=== PATIENT | female | born 1970 | race Caucasian/White ===

== ENCOUNTER 2023-11-06 12:51 | Emergency (ER) | payer SELFPAY ==
[2023-11-06 12:56] VITALS: BP 146/80
--- NOTE | 2023-11-06 13:36 | ED.GENMED ---
History of Present Illness
General
Chief Complaint: Musculo-Skeletal Complaint
Source: patient
Time Seen by Provider: 11/06/23 13:27
Travel History
Have you had any contact with someone who has COVID-19?: No
Do you have any symptoms of coronavirus? Fever > 100 degrees, chills, cough, shortness of breath, sore throat, loss of taste or smell, muscle aches, or headache?: No
History of Present Illness
History of Present Illness:
53-year-old female presenting to the emergency department for evaluation of atraumatic right anterior lower leg pain that started this past Sunday, noticed faint areas of swelling to the anterior portion that had a little bit of erythema, initially
improved with Motrin and ibuprofen but states today woke up and symptoms did not seem to be improved, the swelling a little bit worse and patient had difficulty both plantar flexing and dorsiflexing her foot/ankle. She denies any fevers, chills,
rigors, minimal calf pain or tenderness, chest pain or shortness of breath. Pain was felt this morning more into the thigh and hip area which was different than the previous days. Denies any history of similar. No tick bites or rashes otherwise.
Past History
Past History
ED Past Medical History: None
ED Past Surgical History: Gynecological
Social History
Tobacco: Non-smoker
Alcohol: None
Drug: None
Personal:
Living: with family
Review of Systems
Review of Systems
All Other Systems: ROS reviewed and negative except as documented in HPI and ROS
Phy Exam
Physical Exam
Physical Exam:
GENERAL: Alert , in no apparent distress
EYE: conjunctiva clear
Head: Normocephalic atraumatic
NECK: Supple,
ENT: mmm.
LUNGS: no acute respiratory distress
NEUROLOGICAL: Alert and oriented
SKIN: Warm and dry, very faint erythema along the anterior portion of the right mid tibia. No overlying warmth
MUSCULOSKELETAL: well perfused. Easily palpable pedal and tibial pulses. Cap refill less than 2 seconds and sensation grossly intact to light touch. No calf tenderness or edema. There does appear to be some varicose veins to the anterior
portion of the right mid tibia.
PSYCH: Normal and appropriate interaction.
Scores
Heart Failure Risk
Heart Failure Risk Score: Not Applicable
Heart Score for Chest Pain Patients
STEMI patient?: Not applicable
Withdrawal Assessment of Alcohol
Withdrawal Assessment Completed?: Not applicable
Course
Orders/Labs/Results
Orders:
Orders
11/06/23 13:24
US Periph Venous LOWER Ext RT Urgent
Comment:
Reason For Exam: pain/redness
Vital Signs
Initial and Last Documented VS:
Initial Vital Signs
Temp Pulse Resp BP Pulse Ox
98.3 F 95 20 146/80 98
11/06/23 12:56 11/06/23 12:56 11/06/23 12:56 11/06/23 12:56 11/06/23 12:56
Last Documented Vital Signs
Temp Pulse Resp BP Pulse Ox
98.3 F 95 20 146/80 98
11/06/23 12:56 11/06/23 12:56 11/06/23 12:56 11/06/23 12:56 11/06/23 12:56
MDM/Problems Addressed
Differential Diagnosis Includes:
DVT, varicose veins, no concern for acute arterial occlusion, tendinitis
MDM/Problems Addressed:
53-year-old female presenting to the emergency department for evaluation of right anterior lower leg pain over the last few days, today worse and now also feeling this pain in the right thigh area. Patient does appear to have small varicose veins
which could certainly be playing a role however her pain seems to be a little bit out of proportion to varicose vein discomfort. Will obtain ultrasound to rule out DVT although given the pain seems to be more anterior I suspect this to be unlikely.
Question early cellulitis or Lyme. Patient declining anything else for pain at this time. Reassessment following ultrasound
*Radiology
Radiology exam reviewed: radiology read reviewed
*Pulse Oximetry
Patient hypoxic: no
*Critical Care Note
Total Time (30-74mins, 75-104mins- exclusive of procedures): Not Applicable
Patient Management
Escalation/DeEscalation of care consider admission/obs:
US negative for DVT. Continue NSAIDS/tylenol PRN for pain. Stable for d/c home and aware of return precautions to ED.
I did give patient and Rx for keflex for possible early cellulitis however I did caution patient I did not feel it was likely cellulitis and to wait 24-48 hours to see if symptoms better or worsen
ED Attending Note
-
Portions of this chart may have been created with voice recognition software.� Occasional wrong word or��sound alike� substitutions may have occurred due to the inherent limitations of voice recognition software.
Discharge Plan
Departure
Patient Disposition: Home (Routine Discharge)
Date of Disposition: 11/06/23
Time of Disposition: 15:31
Patient with high blood pressure during this ER visit?: Yes
Discharge Problem:
Lower extremity pain, right
Prescriptions:
New
cephalexin 500 mg tablet
500 mg PO BID 10 Days Qty: 20 0RF
Referrals:
Pia Sheppard DO [Family Provider] -
Interventions
Interventions:
*Risk Screen - Suicide Last Done: 11/06/23 12:56
*General Assessment Last Done: 11/06/23 12:56
*Neglect/Abuse Screening Last Done: 11/06/23 12:56
*ED COVID-19 Vaccine History Last Done: 11/06/23 13:25
*Nursing Disposition Last Done: 11/06/23 15:47
ED-Musculoskeletal Assessment Last Done: 11/06/23 13:25
Discharge Date and Time
Discharge Date/Time: 11/06/23 15:47
Print Language: CITIZEN OF [place]
== END 2023-11-06 15:47 | disposition home or self-care (01) ==
LOC: EMR 12:51
PROVIDERS: EMERGENCY PHYSICIAN Student in an Organized Health Care Education/Training Program; FAMILY PHYSICIAN Family Medicine
DX: M79.661 Pain in right lower leg (principal)
CPT/HCPCS: 99284; 93971